=== PATIENT | female | born 1955 | race Caucasian/White ===

== ENCOUNTER 2019-07-23 15:19 | Emergency (ER) | payer OTHER ==
[~2019-07-23] VITALS: Ht 172.7 cm; Wt 99.8 kg
[~2019-07-23 15:19] MED LIST: AMBEREN PO; BACTRIM DS TAB1 EACH PO; CELEBREX 200 M200 MG; CELEXA40 MG; CLARITIN10 MG; IBUPROFEN 800800 M1 OR; LORTAB 5 MG/5001 TA1 OR; NAPROSYN500 MG PO; NORFLEX100 MG PO; OMEPRAZOLE20 MG; PERCOCET 5-3251 EACH PO; SENNA S TABLET1 EACH OR; TIROSINT100 MCG PO; VICODIN 5-5001 EACH PO; ZOFRAN4 MG PO
[2019-07-23] MEDS ORDERED: XARELTO20 MG PO (15:37)
[2019-07-23] MEDS ORDERED: XANAX XR0.5 MG PO (15:37)
[2019-07-23] MEDS ORDERED: XOPENEX0.31 MG/3 INH (15:37)
[2019-07-23] MEDS ORDERED: CALCIUM500 MG PO (15:37)
[2019-07-23] MEDS ORDERED: METOPROLOL SUCC50 MG PO (15:38)
[2019-07-23] MEDS ORDERED: METHOTREXATE 22.5 M1 PO (15:38)
[2019-07-23] MEDS ORDERED: DOFETILIDE250 MCG PO (15:38)
[2019-07-23 15:47] LABS: ABSOLUTE BASOPHILS 0.1 thou/uL (0.0-0.2); ABSOLUTE EOSINOPHILS 0.1 thou/uL (0.0-0.7); ABSOLUTE LYMPHOCYTES 1.4 thou/uL (0.8-5.3); ABSOLUTE MONOCYTES 0.8 thou/uL (0.0-1.2); ABSOLUTE NEUTROPHILS 5.2 thou/uL (1.6-8.1); EOSINOPHILS 1.6 %; HEMATOCRIT 41.2 % (37.0-47.0); HEMOGLOBIN 14.3 gm/dL (12.0-15.0); LYMPHOCYTES 18.6 %; MCH 33.2 pg (26.0-34.0); MCHC 34.7 g/dL (28.0-37.0); MCV 95.5 fL (80.0-100.0); MPV 8.2 fl. (7.2-11.1); NUCLEATED RBCS 0 /100WBC; PLATELET COUNT* 327 thou/uL (150-400); POLYS 68.8 %; RBC 4.32 mil/uL (4.20-5.00); WBC 7.6 thou/uL (4.0-11.0)
[2019-07-23 15:58] LABS: CALCIUM 9.2 mg/dL (8.5-10.1); CREATININE 1.1 mg/dL (0.6-1.3); POTASSIUM 4.5 mmol/L (3.5-5.1)
[2019-07-23 16:03] LABS: ALBUMIN 4.3 g/dL (3.4-5.0); TOTAL BILIRUBIN 0.5 mg/dL (<0.1-1.0); TOTAL PROTEIN 7.4 g/dL (6.4-8.2)
[2019-07-23] MEDS ORDERED: PREDNISONE 10 M10 M1 PO (16:47)
[2019-07-23] MEDS ORDERED: ACYCLOVIR 800800 MG PO (16:47)
[2019-07-23 17:19] VITALS: BP 121/75
--- NOTE | 2019-07-24 16:51 | EKG ---
[place] [address] ELECTROCARDIOGRAM REPORT Name: PAULA HAUSER Caroline Room: [facility]#: [id number] Admission: 07/23/19 Attend Phys: Discharge: 07/23/19 Date of : 57 Date of Service: 07/23/19 1540 Report #: [id number] THIS REPORT FOR: //name// [facility] ED Test Date: 2019-07-23 Test Time: 15:40:48 Pat Name: PAULA HAUSER Department: Room: Gender: F Behavioral Health Technician: XENA : 1955 Requested By: Fede Rodrigez Order Number: [id number] MD: Calin Dennis Measurements Intervals [place] Rate: 72 P: 203 WI: 168 QRS: 208 QRSD: 112 T: 32 QT: 432 QTc: 473 Interpretive Statements Atrial-ventricular dual-paced rhythm No further analysis attempted due to paced rhythm Baseline wander in lead(s) I,II,III,aVR,aVF Compared to ECG 08/03/2006 07:33:38 Sinus rhythm no longer present Electronically Signed On 07-24-2019 16:50:31 CDT by Calin Dennis [email or web address] <ELECTRONICALLY SIGNED> By: Calin Dennis MD, FACC 07/24/19 1650 1540 1540 Calin Dennis MD, [facility] /EPI
== END 2019-07-23 17:19 | disposition home or self-care (01) ==
LOC: M.ERS 15:19
PROVIDERS: Emergency Medicine Emergency Medical Services
DX: G51.0 Bell's palsy (principal); H53.8 Other visual disturbances; Z88.5 Allergy status to narcotic agent; Z88.1 Allergy status to other antibiotic agents; Z88.8 Allergy status to other drugs, medicaments and biological substances

== ENCOUNTER → 2019-12-22 | Outpatient (CLI) | payer OTHER ==
[~2019-12-22] MED LIST changes: +ACYCLOVIR 800800 MG PO; +CALCIUM500 MG PO; +DOFETILIDE250 MCG PO; +METHOTREXATE 22.5 M1 PO; +METOPROLOL SUCC50 MG PO; +PREDNISONE 10 M10 M1 PO; +XANAX XR0.5 MG PO; +XARELTO20 MG PO; +XOPENEX0.31 MG/3 INH
== END ==
LOC: M.RAD 09:47
PROVIDERS: ATTEND General Practice
DX: Z12.31 Encounter for screening mammogram for malignant neoplasm of breast (principal)

== ENCOUNTER 2020-12-04 07:57 | Emergency (ER) | payer OTHER ==
[~2020-12-04] VITALS: Ht 160 cm; Wt 86.2 kg
[2020-12-04 08:10] VITALS: BP 135/85
[2020-12-04 08:10] LABS: URINE BILIRUBIN NEGATIVE (Negative); URINE BLOOD NEGATIVE (Negative); URINE CLARITY CLEAR; URINE COLOR YELLOW; URINE GLUCOSE-RANDOM NEGATIVE (Negative); URINE KETONES NEGATIVE (Negative); URINE LEUKOCYTES-REFLEX NEGATIVE (Negative); URINE NITRITE-REFLEX NEGATIVE (Negative); URINE PROTEIN NEGATIVE (Negative); URINE UROBILINOGEN 0.2 E.U./dl (0.2-1.0)
[2020-12-04] MEDS ORDERED: LEVO-T100 MCG PO (08:13)
[2020-12-04] MEDS ORDERED: DOFETILIDE250 MCG PO (08:13)
[2020-12-04] MEDS ORDERED: ELIQUIS5 MG PO (08:13)
[2020-12-04] MEDS ORDERED: FOLIC ACID1 MG PO (08:14)
[2020-12-04] MEDS ORDERED: SPIRONOLACTONE25 MG PO (08:14)
[2020-12-04] MEDS ORDERED: XANAX 0.5 MG0.5 M1 (08:15)
[2020-12-04] MEDS ORDERED: TOPROL XL25 MG PO (08:15)
[2020-12-04] MEDS ORDERED: METHOTREXATE 22.5 M1 PO (08:15)
[2020-12-04] MEDS ORDERED: LEVALBUTEROL TA15 GM (08:16)
[2020-12-04] MEDS ORDERED: TIZANIDINE HCL4 M1 PO (08:16)
[2020-12-04] MEDS ORDERED: CALCIUM500 MG PO (08:17)
[2020-12-04] MEDS ORDERED: RESTASIS1 EACH OPHTHALMIC (08:18)
[2020-12-04] MEDS ORDERED: COQ1050 MG PO (08:18)
[2020-12-04] MEDS ORDERED: OMEPRAZOLE 20 M20 M1 PO (08:18)
[2020-12-04] MEDS ORDERED: CEPHALEXIN500 MG PO (08:44)
== END 2020-12-04 08:54 | disposition home or self-care (01) ==
LOC: M.ERS 07:57
PROVIDERS: Emergency Medicine Emergency Medical Services
DX: N39.0 Urinary tract infection, site not specified (principal); J45.909 Unspecified asthma, uncomplicated; F41.9 Anxiety disorder, unspecified; E03.9 Hypothyroidism, unspecified; Z98.890 Other specified postprocedural states; Z90.89 Acquired absence of other organs; Z90.710 Acquired absence of both cervix and uterus; Z79.891 Long term (current) use of opiate analgesic; Z79.899 Other long term (current) drug therapy; Z88.1 Allergy status to other antibiotic agents; Z88.5 Allergy status to narcotic agent; Z88.6 Allergy status to analgesic agent; Z91.018 Allergy to other foods